=== PATIENT | male | born 1960 | race Caucasian/White ===

== ENCOUNTER 2023-06-25 14:29 | Emergency (ER) | payer SELFPAY ==
[2023-06-25 14:30] VITALS: BP 110/92; PULSE 76; RESP 18; TEMP 35.9; O2SAT 99
--- NOTE | 2023-06-25 14:49 | ED.VIS.CHEST ---
HPI History of Present Illness Chief Complaint: Chest Pain PFSH PFS Medical History no medical history Allergy/AdvReac Type Severity Reaction Status Date / Time No Known Allergies Allergy Verified 06/25/23 14:33 Family History no significant family his Surgical History no surgical history Social History Smoking Status: Current every day smoker tobacco type: cigarettes EXAM Physical Exam Const Vital Signs: 06/25/23 14:30 06/25/23 15:13 06/25/23 16:46 Temperature 96.6 F L Temperature Source Temporal Pulse Rate 76 Respiratory Rate 18 Respiratory Effort Blood Pressure 110/92 H 108/83 H Blood Pressure Mean 98 91 Pulse Ox 99 Oxygen Delivery Method Room Air Room Air 06/25/23 15:30 Temperature Temperature Source Pulse Rate Respiratory Rate Respiratory Effort Normal Non-Labored Blood Pressure Blood Pressure Mean Pulse Ox Oxygen Delivery Method Heart Score History: Slightly/Non-Suspicious ECG: Normal Age: </= 45 years Risk Factors: No Risk Factors Troponin: </= Normal Limit Score: 0 MDM MDM MDM Narrative Medical decision making narrative: HISTORY OF PRESENT ILLNESS: 63-year-old male presents with chest pain. He notes intermittent chest pain and dizziness for the last couple of days. He further states pain is in the left side of his chest sometimes it is worse on the right side. It is worse with moving his upper extremities and torso. It is not exertional and is not pressure-like. Denies any cough, fever or chills. Denies any bleeding diathesis. Denies any volume loss such as vomiting or diarrhea. Patient denies sudden onset of pain, no tearing sensation, no migratory symptoms, no new numbness, weakness or loss of sensation. Patient denies family history or personal history of Marfan syndrome or Lex-Danlos. The patient denies recent surgery in the last 4 weeks or immobilization in the last 3 days, denies previous diagnosis of DVT or PE, hemoptysis, unilateral leg swelling or malignancy with treatment the last 6 months. No estrogen use noted. REVIEW OF SYSTEMS: All other systems reviewed and are negative except as noted in the history of present illness. At least 10 review of systems reviewed and are negative except as noted in history of present illness. PHYSICAL EXAM: Nursing triage notes reviewed, Vital signs reviewed Constitutional: please see mdm HENT: MMM Eyes: Pupils equal round and reactive to light, Extraocular muscles intact Neck: No stridor, no JVD, full neck ROM Lungs: Clear to auscultation, No wheezing or rales. No increased work of breathing, no conversational dyspnea, no accessory muscle use, no nasal flaring. No respiratory distress noted Heart: Regular rate and rhythm, No murmurs, No rubs and No gallops, 2+ distal pulses (radial, femoral, posterior tibial) in all extremities Abdomen: Soft, there is no tenderness, rigidity, rebound or guarding, no obvious peritoneal signs, no palpable pulsatile abdominal masses, no auscultated abdominal bruit : No CVAT Extremities: No edema Neuro: Alert and oriented x3, neuro exam at baseline, cranial nerves II through XII are intact. No pain with extraocular muscle movement. There is negative test of skew. 5 of 5 strength in upper and lower extremities in flexion extension. Intact sensation to light touch in upper and lower extremity dermatomes. No truncal or extremity ataxia. No dysdiadochokinesia. Normal gait. 2+ reflexes in upper and lower extremities. No meningeal signs. Negative Babinski. NIH of 0. Skin: No rash or lesions noted MEDICAL DECISION MAKING: Chief Complaint: Chest pain External records reviewed: No recent cardiac catheterizations, stress test or echocardiograms noted in our electronic medical record Factors affecting care: None documented Social determinants of health: None documented History obtained from others: the patient's Consults: none [facility] Narrative: Patient was initially hemodynamically stable, afebrile, cardiopulmonary exam I considered the following differential diagnosis: ACS, arrhythmia, anemia, electrolyte abnormality, pneumonia, pneumothorax, GI etiology, PE EKG with normal sinus rhythm, normal axis, normal intervals, occasional PVCs, no ischemic changes, no STEMI, no WW or ARVD CBC without leukocytosis, severe anemia, no thrombocytopenia. BMP without evidence of significant electrolyte abnormalities, no anion gap, no acute kidney injury. High-sensitivity troponin is negative, no evidence of myocardial ischemia x 2 I have personally reviewed the patient's chest x-ray. Chest x-ray is unremarkable for pulmonary edema, pneumothorax, pneumonia or focal cardiopulmonary abnormality. The synthesis of the patient's history, physical exam, labs, images suggest no acute life-limiting abnormality. Suspect musculoskeletal etiology given exacerbation with torso and upper extremity movement. His heart score is low risk. PE less likely given low risk Wells score. Aortic dissection is thought to be less likely given no sudden ripping or tearing pain, migratory pain, palpable pulse inequalities, no focal neurologic deficits concurrent with chest pain. Chance of dissection less than 07/1999. Pericarditis less likely given no pathognomonic EKG changes (no diffuse ST elevations, AL depressions). GI etiology (i.e. Boerhaave syndrome) less likely given no chest or neck crepitus, no vomiting or forced retching. I completed a HEART Score to screen for Major Adverse Cardiac Event (MACE) in this patient. The evidence indicates that the patient is very low risk for MACE and this is consistent with my clinical intuition. The risk of further workup or hospitalization for MACE is likely higher than the risk of the patient having a MACE. It is, therefore, in the patient?s best interest not to do additional emergent testing or to be hospitalized for MACE at this time. Shared Decision-Making No hospitalization indicated I have discussed with the patient my clinical impression and the result of the HEART Score to screen for MACE, as well as the risks of further testing and hospitalization. The HEART Score shows that the risk for MACE is less than 1%. Although the risk of MACE has not been completely eliminated, the risks of further testing or hospitalization for MACE likely exceed any potential benefit, and the patient agrees with not pursuing further emergent evaluation or hospitalization for MACE at this time. The patient and/or family, caregivers express understanding. The patient and/or family, caregivers agrees with the plan. Total critical care time today provided was at least 0 minutes. This excludes separately billable procedures. Critical care time (if documented) is secondary to the patient having high probability of clinically significant/life threatening deterioration in the patient's condition which required my urgent intervention. ImPression: 1. Chest pain Disposition: Discharge home Eyad Avendano, Lab Data Labs: Laboratory Results - last 24 hr 06/25/23 06/25/23 15:05 17:36 WBC 7.3 RBC 5.69 Hgb 16.6 H Hct 50.2 MCV 88.2 MCH 29.2 MCHC 33.1 RDW Std Deviation 46.2 H RDW Coeff of Harvey 14.3 Plt Count 260 MPV 10.9 Immature Gran % (Auto) 0.300 Neut % (Auto) 61.9 Lymph % (Auto) 28.6 [place] % (Auto) 7.4 Eos % (Auto) 1.1 Baso % (Auto) 0.7 Absolute Neuts (auto) 4.5 Absolute Lymphs (auto) 2.08 Nucleated RBC % 0 Sodium 138 Potassium 3.8 Chloride 107 Carbon Dioxide 29.0 Anion Gap 2 L BUN 21 H Creatinine 0.91 Estim Creat Clear Calc 87.34 Est GFR (MDRD) Af Amer 107 Est GFR (MDRD) Non-Af 89 BUN/Creatinine Ratio 23.0 H Glucose 115 H Calcium 9.2 Troponin I High Sens 8 10 Radiography Diagnostic Testing: Clinical Impression(s) from Imaging Studies Chest X-Ray 06/25/23 15:25 IMPRESSION: Borderline cardiomegaly. No active or acute cardiopulmonary disease. Electronically Signed: Waqas Núñez MD at 15:36 EST , Discharge Plan Triage Chief Complaint: Chest Pain ED Provider: Eyad Avendano Dx/Rx/DC Orders Primary Care Provider: Care Physician,No Primary Referrals: NOT,DEFINED [Non-Staff] -
--- NOTE | 2023-06-25 15:08 | EKG12_ITS ---
Test Reason : CP Blood Pressure : / mmHG Vent. Rate : 081 BPM Atrial Rate : 081 BPM P-R Int : 156 ms QRS Dur : 096 ms QT Int : 382 ms P-R-T Axes : 067 029 024 degrees QTc Int : 443 ms Sinus rhythm with occasional Premature ventricular complexes Biatrial enlargement Abnormal ECG Confirmed by AMY ARANA, WALLY ([id number]), food expeditor ANGEL CALERO ([id number]) on 06/27/2023 9:21:12 AM Referred By: Confirmed By:WALLY REYES MD
--- NOTE | 2023-06-25 15:11 | ED.RN ---
NO OLD EKG
[2023-06-25 15:19] LABS: Absolute Lymphocyte Count 2.08 X10^3/uL (0.83-4.51); Absolute Neutrophil Count 4.5 X10^3/uL (2.0-7.7); Basophil# 0.05 X10^3/uL; Basophil% 0.7 % (0-1); Eosinophil# 0.08 X10^3/uL; Eosinophils% 1.1 % (0-5); Hematocrit 50.2 % (40-54); Hemoglobin 16.6 g/dL (13.0-16.5); Lymphocyte # 2.08 X10^3/ul (0.83-4.51); Lymphocyte % 28.6 % (19-41); Mean Corp Hgb Conc 33.1 g/dL (32-36); Mean Corpuscular Hgb 29.2 pg (27.0-32.0); Mean Corpuscular Volume 88.2 fL (80-94); Mean Platelet Vol. 10.9 fl (6.2-12.0); Monocyte# 0.54 X10^3/uL; Monocyte% 7.4 % (0-10); NRBC Flagged by Analyzer 0 % (0-5); Neutrophil % 61.9 % (47-70); Platelet Count 260 K/mm3 (150-450); RBC Distribution Width CV 14.3 % (11.6-14.6); RBC Distribution Width SD 46.2 fl (35.1-43.9); Red Blood Count 5.69 M/mm3 (4.6-6.2); White Blood Count 7.3 K/mm3 (4.4-11.0)
[2023-06-25] MEDS: Aspirin 81 MG TAB.CHEW 324 MG PO (15:21)
[2023-06-25] MEDS: 0.9% Normal Saline (1000mL) 1,000 ML 1000 ML IV (15:22)
[2023-06-25 15:24] VITALS: BMI 30.8
--- NOTE | 2023-06-25 15:25 | RAD_ITS ---
STUDY: X-RAY CHEST REASON FOR EXAM: Male, 63 years old. Chest pain. TECHNIQUE: Single frontal view of the chest on 2 images. COMPARISON: None. FINDINGS: The lungs are clear and expanded. There is no demonstrated pleural abnormality. Borderline cardiomegaly. Normal mediastinum and cyrus. Normal visualized pulmonary arteries. Normal visualized aortic arch and descending thoracic aorta. Normal visualized thoracic spine. Normal visualized ribs, clavicles, and shoulders. No abnormality of the visualized soft tissue structures of the upper abdomen. RAD/Chest 1 View (Portable) IMPRESSION: Borderline cardiomegaly. No active or acute cardiopulmonary disease. Electronically Signed: Waqas Núñez MD at 15:36 EST ,
[2023-06-25 15:40] LABS: Anion Gap 2 (5-15); BUN 21 mg/dL (7-18); Calcium,Total 9.2 mg/dL (8.5-10.1); Chloride 107 mmol/L (98-107); Creatinine, Serum 0.91 mg/dL (0.70-1.30); EST Glomerular Filtration Rate 89 mL/min (>60); Est Glom Filt Rate - Afr Amer 107 mL/min (>60); Estimated Creatinine Clearance 87.34 ml/min; Glucose 115 mg/dL (74-106); Potassium 3.8 mmol/L (3.5-5.1); Sodium Level 138 mmol/L (136-145); Troponin-I HS (w/2H Reflex) 8 pg/mL (3.0-78.0)
[2023-06-25 16:46] VITALS: BP 108/83
[2023-06-25 17:17] LABS: Reflex Troponin-HS? (from REC) Y
[2023-06-25 18:11] LABS: Troponin-I HS 10 pg/mL (3.0-78.0)
== END 2023-06-25 18:57 | disposition home or self-care (01) ==
PROVIDERS: Emergency Provider Emergency Medicine; Visit Provider Emergency Medicine
DX: R07.9 Chest pain, unspecified (principal); F17.210 Nicotine dependence, cigarettes, uncomplicated
CPT/HCPCS: 71045; 80048; 84484; 85025; 93005; 96360; 96361; 99284; A4216

== ENCOUNTER 2023-07-20 18:30 | Emergency (ER) | payer OTHER, SELFPAY ==
[2023-07-20 18:31] VITALS: BP 109/88; PULSE 79; RESP 16; TEMP 36.4; O2SAT 100; BMI 32.3
--- NOTE | 2023-07-20 18:43 | EKG12_ITS ---
Test Reason : CP Blood Pressure : / mmHG Vent. Rate : 079 BPM Atrial Rate : 079 BPM P-R Int : 160 ms QRS Dur : 092 ms QT Int : 386 ms P-R-T Axes : 061 032 022 degrees QTc Int : 442 ms Sinus rhythm with frequent Premature ventricular complexes Possible Left atrial enlargement Borderline ECG Confirmed by AMY ARANA, WALLY ([id number]), society editor ANGEL CALERO ([id number]) on 07/30/2023 8:51:47 AM Referred By: KAREN Confirmed By:WALLY REYES MD
--- NOTE | 2023-07-20 18:52 | ED.VIS.CHEST ---
HPI History of Present Illness Chief Complaint: Chest Pain Detail of Chief Complaint: Right sided chest discomfort with burning. Burping with an acid taste. Informant: patient and spouse/S.O. Onset/Context/Timing Onset: Days Activity at onset: gradual Timing: Intermittent Quality: Positive for Burning Location: Right Parasternal Current Severity: Gone Maximum Severity: Mild Worsened By: Nothing; Not Worsened By Exertion, Movement of Arm, Movement of Torso, Eating, Palpation, Breathing or Coughing Relieved By: Nothing Associated Symptoms: Positive for Acid Reflux; Negative for Nausea, Vomiting, Diaphoresis, Dyspnea, Cough, Fever, Lightheadedness or Palpitations Narrative Narrative: 63-year-old male no seen past medical history. Patient is a smoker. He was seen a month ago for atypical chest pain and negative workup. Discharged home. Said last several days he has had burping with an acid taste. And right parasternal burning. He denies any exertional chest pain. No exertional shortness of breath. No nausea or diaphoresis. Says he walks steps at his house all the time without any difficulty. He is currently retired and is not really exertional. He has never had any cardiac disease. He does still smoke which I warned him against that. Prior Similar Symptoms: No Recent Illness/Hospitalization: No CVD Risk Factors: Positive for Smoking; Negative for Hypertension, Diabetes or Hypercholesterolemia PE Risk Factors: Negative for Recent Travel/Surgery, Recent Immobilization, Prior DVT or PE, Cancer or OCP + Smoking + >/=35 TAD Risk Factors: Negative for Marfan's Syndrome PFSH PFSH Medical History no medical history no medical history Home Medications pantoprazole 40 mg tablet,delayed release (Protonix) 40 mg PO DAILY 30 days #30 tabs 07/20/23 [Rx Last Taken Unknown] Allergy/AdvReac Type Severity Reaction Status Date / Time No Known Allergies Allergy Verified 06/25/23 14:33 Social History Smoking Status: Current every day smoker tobacco type: cigarettes ROS ROS ED ROS Narrative Right-sided chest burning. Resolved. No exertional chest pain. No dyspnea. No nausea or diaphoresis. Review of Systems ROS Unobtainable: Denies due to encephalopathy Constitutional Constitutional ED: Denies chills or fever(s) Eyes Eyes: Reports none ENT ENT ED: Denies ear pain Cardiovascular Cardiovascular: Reports chest pain; Denies orthopnea, palpitations or racing heartbeat Respiratory/Chest Respiratory/Chest: Denies cough, dyspnea, dyspnea on exertion or orthopnea Gastrointestinal Gastrointestinal: Denies abdominal pain, constipation, diarrhea, melena, nausea or vomiting Genitourinary Genitourinary ED: Denies dysuria or hematuria Musculoskeletal Musculoskeletal: Denies arthralgias, back pain, myalgias or neck pain Integumentary Denies abscess, Abrasions or rash Neurologic Neurologic: Denies headache(s) Psychiatric Psychiatric: Denies anxiety or depression Endocrine Endocrinology: Denies cold intolerance, heat intolerance, polydipsia, polyphagia or polyuria Hematologic/Lymphatic Hematologic/Lymphatic: Denies easy bleeding, easy bruising or lymphadenopathy Allergic/Immunologic Allergic/Immunologic ED: Denies mouth swelling, tongue swelling or urticaria EXAM Physical Exam Narrative Exam Narrative: Well-appearing 63-year-old male. Vital signs are stable afebrile. H EENT exam unremarkable. Neck nontender no JVD. Lungs clear to auscultation bilaterally. Heart regular rhythm rate about 80 no murmur. Occasional PVC on monitor. Chest wall nontender. Abdomen soft nontender normal bowel sounds no peritoneal signs. No right upper quadrant tenderness. Moving all 4 extremities. Calves nontender no edema or cords. Neurologically is awake alert with no focal motor deficits. Benign exam. Const Vital Signs: 07/20/23 18:31 07/20/23 19:03 07/20/23 19:31 Temperature 97.5 F L Temperature Source Temporal Pulse Rate 79 59 L Respiratory Rate 16 23 H Blood Pressure 109/88 H 100/81 H Blood Pressure Mean 95 87 Pulse Ox 100 97 Oxygen Delivery Method Room Air Room Air Room Air Positive well nourished and well developed; Negative for obese, cachectic, contractures or unkempt General Appearance ED: well developed and NAD; Negative for unkempt, cachectic, contractures or pallor Nutritional Appearance: Negative for cachectic or obese HEENT Reports moist mucous membranes; Denies dry mucous membranes normocephalic and atraumatic; Negative for trauma or tenderness Mouth ED: No dry mucous membranes Mouth: No dry mucous membranes Eyes PERRL and EOMs intact bilaterally General Eye ED: Negative for pale conjunctiva or scleral icterus Neck no lymphadenopathy, supple and no JVD General: Negative for tenderness Chest Wall inspection of chest normal and palpation of chest normal Chest: Negative for tenderness Resp normal respiratory effort and clear to auscultation bilaterally Effort and Inspection: Negative for respiratory distress Auscultation: Negative for rales, rhonchi or wheezes Cardio regular rate, regular rhythm, S1 normal heart sound, S2 normal heart sound and no murmurs Rate: Negative for bradycardia or tachycardic Rhythm: Negative for abnormal rhythm Peripheral Pulses: pulses 2+ throughout GI normal to inspection, nondistended, normoactive bowel sounds, soft to palpation, non-tender, non-distended and no masses Auscultation: Negative for hyperactive bowel sounds Back/Spine no CVA tenderness and no thoracic nor lumbar tenderness General Back: Negative for CVA tenderness Cervical Spine: Negative for cervical spine tenderness Extremity normal to inspection General Extremety ED: Negative for edema or pulses abnormal General Extremity: Negative for edema or pulses abnormal Neuro oriented x3, CN's II-XII intact bilaterally and no sensory deficits noted Sensorium / Orientation: awake, alert, oriented to person, oriented to place and oriented to time; Negative for confused, lethargic or stuporous Motor Exam: strength 5/5 throughout Psych mental status grossly normal Appearance: Negative for unkempt Attitude: No agitated Mood & Affect: Negative for depressed, anxious or tearful Skin no rashes or lesions noted and no wounds General Skin Exam: Negative for jaundice or pallor Rashes: No rashes noted Trauma: Negative for abrasion, laceration or puncture MDM MDM MDM Narrative Medical decision making narrative: 63-year-old male a month ago had a cardiac workup that was negative to the emergency department. This is nonexertional chest pain. Sounds like reflux with indigestion and burping with an acid taste. He will undergo cardiac workup. I will hold aspirin. Will be given Protonix p.o. His cardiac workup is negative comfortably being discharged home with a PPI. Repeat exam at 8 PM patient doing well. Pain-free. We went over his test results. Doing well. We discussed a 2-hour troponin he had 1 done a month ago was negative he is comfortable being discharged home. History & Record Review Discussion w/independent historian: Patient Additional record(s) reviewed:: Prior inpatient record, Prior outpatient record, Prior ED visit and Prior labs Lab Data Attestation: I reviewed the patient's lab results. Lab results narrative: BC normal. White count 8. H&H 16 and 49. Platelets 249. Chemistries show a gap of 4 normal BUN of 17 creatinine 0.7. Glucose 95. Initial troponin 10. Chest x-ray no acute abnormality. Labs: Laboratory Results - last 24 hr 07/20/23 19:02 WBC 8.3 RBC 5.69 Hgb 16.3 Hct 49.4 MCV 86.8 MCH 28.6 MCHC 33.0 RDW Std Deviation 45.8 H RDW Coeff of Harvey 14.5 Plt Count 249 MPV 11.3 Immature Gran % (Auto) 0.400 Neut % (Auto) 55.7 Lymph % (Auto) 30.5 [place] % (Auto) 9.5 Eos % (Auto) 2.9 Baso % (Auto) 1.0 Absolute Neuts (auto) 4.7 Absolute Lymphs (auto) 2.54 Nucleated RBC % 0 Sodium 141 Potassium 3.8 Chloride 109 H Carbon Dioxide 28.0 Anion Gap 4 L BUN 17 Creatinine 0.77 Estim Creat Clear Calc 100.07 Est GFR (MDRD) Af Amer 131 Est GFR (MDRD) Non-Af 108 BUN/Creatinine Ratio 22.1 H Glucose 95 Calcium 9.1 Troponin I High Sens 10 Radiography Chest X-Ray - ED: 1 View, Read by ED Physician, Heart, Lungs, Mediastinum, Bony Structures, No Acute Disease and Chronic Changes Diagnostic Testing: Clinical Impression(s) from Imaging Studies Chest X-Ray 07/20/23 19:14 IMPRESSION: No acute cardiopulmonary disease. Electronically Signed: Lachelle Wu MD at 19:36 EST , Chest x-ray, portable, single view shows no acute abnormality. Verbally by myself. Normal cardiac silhouette. Normal mediastinum. Normal lung chacon. No pneumothorax. Rhythm Strip Rhythm Strip: Sinus Rhythm Rate: 79 Ectopy: PVC(s) EKG Initial EKG: Attestation: I personally reviewed and interpreted this EKG as follows: Interpretation: Sinus Rhythm and No Acute Injury Pattern Comments: Normal sinus rhythm rate of 79. Frequent PVCs. No acute signs of KS or ischemia. Compared to her prior EKG from May 1 month ago unchanged. Prior EKG tracings: available for review Prior: Unchanged Discharge Plan Triage Chief Complaint: Chest Pain ED Provider: Zachery Contreras Dx/Rx/DC Orders Clinical Impression: Atypical chest pain, Gastroesophageal reflux Instructions: ED GERD (Adult) Prescriptions: New pantoprazole [Protonix] 40 mg tablet,delayed release (DR/EC) 40 mg PO DAILY 30 Days Qty: 30 0RF Primary Care Provider: Care Physician,No Primary Referrals: Macrellus Dominguez MD [Med Staff - [facility]] - As Needed Care Physician,No Primary [Primary Care Provider] - Activity Restrictions/Additional Instructions: Tums and/or Protonix for reflux. Avoid spicy foods. Try not to eat late at night. May try to elevate the head of your bed to see if it helps. Long-term stop smoking. Follow-up with a primary care provider. Disposition Disposition: Home, Self Care
--- NOTE | 2023-07-20 19:14 | RAD_ITS ---
STUDY: X-RAY CHEST REASON FOR EXAM: Male, 63 years old. chest pain TECHNIQUE: Single AP portable view of the chest. COMPARISON: 06/17/2023. FINDINGS: The lungs are clear and expanded. There is no demonstrated pleural abnormality. Normal size heart. Normal mediastinum and cyrus. Normal visualized pulmonary arteries. There is mild atherosclerotic calcification of the aortic arch with tortuosity. There are diffuse degenerative changes of the visualized thoracic spine. Normal visualized ribs, clavicles, and shoulders. There is no demonstrated abnormality of the visualized soft tissue structures of the upper abdomen. RAD/Chest 1 View (Portable) IMPRESSION: No acute cardiopulmonary disease. Electronically Signed: Lachelle Wu MD at 19:36 EST ,
[2023-07-20 19:17] LABS: Absolute Lymphocyte Count 2.54 X10^3/uL (0.83-4.51); Absolute Neutrophil Count 4.7 X10^3/uL (2.0-7.7); Basophil# 0.08 X10^3/uL; Eosinophil# 0.24 X10^3/uL; Eosinophils% 2.9 % (0-5); Hematocrit 49.4 % (40-54); Hemoglobin 16.3 g/dL (13.0-16.5); Lymphocyte # 2.54 X10^3/ul (0.83-4.51); Lymphocyte % 30.5 % (19-41); Mean Corpuscular Hgb 28.6 pg (27.0-32.0); Mean Corpuscular Volume 86.8 fL (80-94); Mean Platelet Vol. 11.3 fl (6.2-12.0); Monocyte# 0.79 X10^3/uL; Monocyte% 9.5 % (0-10); NRBC Flagged by Analyzer 0 % (0-5); Neutrophil # 4.66 X10^3/uL (2.7-7.7); Neutrophil % 55.7 % (47-70); Platelet Count 249 K/mm3 (150-450); RBC Distribution Width CV 14.5 % (11.6-14.6); RBC Distribution Width SD 45.8 fl (35.1-43.9); Red Blood Count 5.69 M/mm3 (4.6-6.2); White Blood Count 8.3 K/mm3 (4.4-11.0)
[2023-07-20] MEDS: Pantoprazole Sodium 40 MG Tablet PO (19:24)
[2023-07-20 19:31] VITALS: BP 100/81; PULSE 59; RESP 23; O2SAT 97
[2023-07-20 19:33] LABS: Anion Gap 4 (5-15); BUN 17 mg/dL (7-18); BUN/Creat Ratio 22.1 RATIO (10-20); Calcium,Total 9.1 mg/dL (8.5-10.1); Chloride 109 mmol/L (98-107); Creatinine, Serum 0.77 mg/dL (0.70-1.30); EST Glomerular Filtration Rate 108 mL/min (>60); Est Glom Filt Rate - Afr Amer 131 mL/min (>60); Estimated Creatinine Clearance 100.07 ml/min; Glucose 95 mg/dL (74-106); Potassium 3.8 mmol/L (3.5-5.1); Sodium Level 141 mmol/L (136-145); Troponin-I HS (w/2H Reflex) 10 pg/mL (3.0-78.0)
[2023-07-20 19:50] VITALS: PULSE 58; RESP 12; O2SAT 98
[2023-07-20 20:00] VITALS: BP 100/78
[2023-07-20 20:10] VITALS: PULSE 61; RESP 13; O2SAT 97
[2023-07-20 20:15] VITALS: BP 101/85; PULSE 59; RESP 18; O2SAT 98
[2023-07-20 21:11] LABS: Reflex Troponin-HS? (from REC) Y
== END 2023-07-20 20:20 | disposition home or self-care (01) ==
PROVIDERS: Emergency Provider Emergency Medicine; Visit Provider Emergency Medicine
DX: R07.89 Other chest pain (principal); K21.9 Gastro-esophageal reflux disease without esophagitis; F17.210 Nicotine dependence, cigarettes, uncomplicated
CPT/HCPCS: 71045; 80048; 84484; 85025; 93005; 99283; A4216

== ENCOUNTER 2024-08-26 14:37 | Emergency (ER) | payer MEDICARE, SELFPAY ==
[2024-08-26 14:37] VITALS: BP 101/82; PULSE 92; RESP 18; TEMP 36.4; O2SAT 100; BMI 34.9
[2024-08-26 16:15] LABS: Absolute Lymphocyte Count 1.29 X10^3/uL (0.83-4.51); Absolute Neutrophil Count 9.6 X10^3/uL (2.0-7.7); Basophil# 0.03 X10^3/uL; Basophil% 0.3 % (0-1); Eosinophil# 0.01 X10^3/uL; Eosinophils% 0.1 % (0-5); Hematocrit 48.9 % (40-54); Lymphocyte # 1.29 X10^3/ul (0.83-4.51); Lymphocyte % 10.9 % (19-41); Mean Corp Hgb Conc 32.7 g/dL (32-36); Mean Corpuscular Hgb 28.2 pg (27.0-32.0); Mean Corpuscular Volume 86.1 fL (80-94); Mean Platelet Vol. 11.7 fl (6.2-12.0); Monocyte# 0.81 X10^3/uL; Monocyte% 6.9 % (0-10); NRBC Flagged by Analyzer 0 % (0-5); Neutrophil # 9.64 X10^3/uL (2.7-7.7); Neutrophil % 81.5 % (47-70); Platelet Count 296 K/mm3 (150-450); RBC Distribution Width CV 13.8 % (11.6-14.6); RBC Distribution Width SD 43.9 fl (35.1-43.9); Red Blood Count 5.68 M/mm3 (4.6-6.2); White Blood Count 11.8 K/mm3 (4.4-11.0)
[2024-08-26 16:26] LABS: ALB/GLOB Ratio 0.8 RATIO (0.9-2.4); AST(SGOT) 20 U/L (15-37); Alanine Aminotransfer ALT/SGPT 33 U/L (16-61); Alkaline Phosphatase 103 U/L (45-117); Anion Gap 7 (5-15); BUN 11 mg/dL (7-18); BUN/Creat Ratio 14.7 RATIO (10-20); Calcium,Total 9.8 mg/dL (8.5-10.1); Chloride 103 mmol/L (98-107); Creatinine, Serum 0.75 mg/dL (0.70-1.30); EST Glomerular Filtration Rate 111 mL/min (>60); Est Glom Filt Rate - Afr Amer 134 mL/min (>60); Estimated Creatinine Clearance 114.68 ml/min; Glucose 132 mg/dL (74-106); Potassium 3.7 mmol/L (3.5-5.1); Sodium Level 137 mmol/L (136-145)
[2024-08-26 16:37] VITALS: BP 165/87; PULSE 103; RESP 25; O2SAT 100
--- NOTE | 2024-08-26 16:53 | EDS_ITS ---
HPI HPI - GI History of Present Illness Chief Complaint: Abd Pain Informant: patient Abdominal Pain/Flank Pain Onset: Yesterday Context: Sudden Onset Timing: Continuous Quality: Sharp Location: Diffuse Worsened by: Nothing Relieved by: - (Standing) Nausea/Vomiting/Emesis GI Symptom: Negative for Nausea or Vomiting Diarrhea/Melena/Hematochezia GI Symptom: Negative for Diarrhea, Melena or Hematochezia Associated Symptoms Associated Symptoms: Positive for Frequency; Negative for Dysuria or Hematuria Narrative Narrative: Patient presents with abdominal pain that began yesterday. Patient states it began rather suddenly. Patient states it is constant. Patient states that it goes all the way across his mid abdomen. Patient describes the pain as sharp. Patient states the pain is better with standing. Patient states nothing makes it worse. Patient denies any nausea or vomiting. Patient denies any diarrhea, melena, or hematochezia. Patient denies any dysuria or hematuria. Patient does admit to some urinary frequency. PFSH PFSH Medical History no medical history no medical history Home Medications ?Medication ?Instructions ?Recorded ?Last Taken ?Type pantoprazole 40 mg tablet,delayed 40 mg PO DAILY 30 days #30 tabs 07/20/23 Unknown Rx release (Protonix) Allergy/AdvReac Type Severity Reaction Status Date / Time No Known Allergies Allergy Verified 08/26/24 14:40 Surgical History no surgical history no surgical history Social History Smoking Status: Current every day smoker tobacco type: cigarettes ROS ROS ED Constitutional Constitutional ED: Denies chills or fever(s) Eyes Eyes: Denies blurry vision or change in vision ENT ENT ED: Denies rhinorrhea or sore throat Cardiovascular Cardiovascular: Denies chest pain or palpitations Respiratory/Chest Respiratory/Chest: Denies cough or dyspnea Gastrointestinal Gastrointestinal: Reports abdominal pain; Denies nausea or vomiting Genitourinary Genitourinary ED: Reports urinary frequency; Denies dysuria or hematuria Musculoskeletal Musculoskeletal: Denies back pain or neck pain Integumentary Denies abscess or rash Neurologic Neurologic: Denies headache(s) or weakness Allergic/Immunologic Allergic/Immunologic ED: Denies mouth swelling or urticaria EXAM Physical Exam Const Vital Signs: 08/26/24 14:37 08/26/24 16:37 08/26/24 18:00 Temperature 97.6 F L Temperature Source Oral Pulse Rate 92 103 H 78 Respiratory Rate 18 25 H 22 H Blood Pressure 101/82 H 165/87 H 119/83 H Blood Pressure Mean 88 113 95 Pulse Ox 100 100 99 Oxygen Delivery Method Room Air Room Air Room Air Positive well nourished and well developed General Appearance ED: well developed and NAD HEENT Reports moist mucous membranes Neck supple and no JVD Resp normal respiratory effort and clear to auscultation bilaterally Cardio regular rate and regular rhythm GI non-distended Palpation: soft and tender epigastric, LLQ, RLQ, LUQ, RUQ, periumbilical and suprapubic; Negative for guarding or rebound tenderness present Neuro CN's II-XII intact bilaterally, moves all extremities and no sensory deficits noted Sensorium / Orientation: alert Motor Exam: strength 5/5 throughout Psych mental status grossly normal and thought process normal MDM MDM MDM Narrative Medical decision making narrative: Differential diagnosis includes gastroenteritis, pancreatitis, peptic ulcer disease, duodenal ulcer, colitis, diverticulitis, appendicitis, cholecystitis, cholelithiasis, bowel obstruction, and perforation. CBC will be obtained to assess for leukocytosis and anemia. Comprehensive metabolic profile will be obtained to assess for hepatic function, renal function, and electrolyte abnormality. Lipase will be obtained to assess for pancreatitis. Urinalysis will be obtained to assess for urinary tract infection and hematuria. CT scan of the abdomen and pelvis will be obtained to assess for diverticulitis, cholecystitis, bowel obstruction, perforation, and appendicitis. Lab Data Attestation: I reviewed the patient's lab results. Lab results narrative: CBC was reviewed. There is a slight leukocytosis of 11.8. The remainder is within normal limits. Comprehensive metabolic profile was reviewed. Glucose was slightly elevated at 132. The remainder was within normal limits. Lipase was reviewed and was normal at 16. Urinalysis was reviewed. There is no evidence of urinary tract infection or hematuria. Labs: Laboratory Results - last 24 hr 08/26/24 08/26/24 15:30 17:59 WBC 11.8 H RBC 5.68 Hgb 16.0 Hct 48.9 MCV 86.1 MCH 28.2 MCHC 32.7 RDW Std Deviation 43.9 RDW Coeff of Harvey 13.8 Plt Count 296 MPV 11.7 Immature Gran % (Auto) 0.300 Neut % (Auto) 81.5 H Lymph % (Auto) 10.9 L Crane % (Auto) 6.9 Eos % (Auto) 0.1 Baso % (Auto) 0.3 Absolute Neuts (auto) 9.6 H Absolute Lymphs (auto) 1.29 Nucleated RBC % 0 Sodium 137 Potassium 3.7 Chloride 103 Carbon Dioxide 27.0 Anion Gap 7 BUN 11 Creatinine 0.75 Estim Creat Clear Calc 114.68 Est GFR (MDRD) Af Amer 134 Est GFR (MDRD) Non-Af 111 BUN/Creatinine Ratio 14.7 Glucose 132 H Calcium 9.8 Total Bilirubin 0.60 AST 20 ALT 33 Alkaline Phosphatase 103 Total Protein 9.0 H Albumin 4.0 Globulin 5.0 H Albumin/Globulin Ratio 0.8 L Lipase 16 Urine Color Yellow Urine Clarity Clear Urine pH 5.0 Ur Specific [place] 1.015 Urine Protein 30 H Urine Glucose (UA) Normal Urine Ketones 5 H Urine Occult Blood 50 H Urine Nitrite Negative Urine Bilirubin Negative Urine Urobilinogen Normal Ur Leukocyte Esterase 25 H Urine RBC 0-5 SEEN Urine WBC 0-5 SEEN Ur Squamous Epith Cells 0 SEEN Urine Bacteria 0 SEEN Urine Mucus 1+ Radiography Diagnostic Testing: Clinical Impression(s) from Imaging Studies Abdomen/Pelvis CT 08/26/24 17:00 IMPRESSION: 1. No acute abnormality in the abdomen and pelvis. 2. Hepatic steatosis. 3. Prostatomegaly. 4. Probable hepatic cyst. One or more dose reduction techniques were used (e.g., Automated exposure control, adjustment of the mA and/or kV according to patient size, use of iterative reconstruction technique). Reading Location: [facility] CT scan of the abdomen and pelvis was obtained. There is no acute abnormality noted. There is hepatic steatosis and a probable hepatic cyst. This was interpreted by the radiologist and was also independently reviewed by myself. Treatment and Re-Evaluation :: Smoking cessation was discussed. Patient was given IV fluids, morphine, and Zofran. Patient was advised of his findings. Patient was instructed to start with a liquid diet and advance as tolerated. Patient was instructed to follow- up with his primary care physician in 5 to 7 days. Patient was instructed to return if worse in any way. Patient understood and was agreeable with the plan. All questions were answered. Discharge Plan Triage Chief Complaint: Abd Pain ED Provider: Rebel Hardy Dx/Rx/DC Orders Clinical Impression: Abdominal pain, Tobacco use disorder Instructions: ED Abdominal Pain Unkn Cause Male... Prescriptions: No Action pantoprazole [Protonix] 40 mg tablet,delayed release (DR/EC) 40 mg PO DAILY 30 Days Qty: 30 0RF Primary Care Provider: ALAINA ALMANZA Referrals: ALAINA ALMANZA [Other] - 5-7 Days Print Language: Malaysian Disposition Disposition: Home, Self Care
--- NOTE | 2024-08-26 17:00 | CT_ITS ---
PROCEDURE: ABDOMEN/PELVIS W IV CONT ONLY REASON FOR EXAM: Abdominal pain TECHNIQUE: Abdomen and pelvis CT before and following intravenous contrast. IV CONTRAST: COMPARISON: None. FINDINGS: Lung bases: Clear Liver: Fatty infiltration hypodense lesion in the left hepatic lobe measuring 1.7 cm. Gallbladder: Unremarkable. Spleen: Unremarkable. Pancreas: Fatty replaced.. Adrenals: Unremarkable. Kidneys: Unremarkable. Bladder: Unremarkable. Reproductive Organs: Prostate measures 6.4 cm in transverse dimension. Bowel: Nondilated.. Appendix: Normal. Lymph nodes: No suspicious lymph node enlargement. Vasculature: Atherosclerotic calcification with no evidence of aneurysm. Peritoneum / Retroperitoneum: No ascites. No free air. Bones: Unremarkable. CT/Abdomen/Pelvis W IV Cont ONLY IMPRESSION: 1. No acute abnormality in the abdomen and pelvis. 2. Hepatic steatosis. 3. Prostatomegaly. 4. Probable hepatic cyst. One or more dose reduction techniques were used (e.g., Automated exposure contr ol, adjustment of the mA and/or kV according to patient size, use of iterative reconstruction technique). Reading Location: [facility]
[2024-08-26] MEDS: Ondansetron 4 MG/2 ML Vial IV (17:22)
[2024-08-26] MEDS: Morphine 4 MG/ML Syringe IV ×2 (17:22→18:50)
[2024-08-26 17:43] LABS: Lipase 16 U/L (13-75)
[2024-08-26 18:00] VITALS: BP 119/83; PULSE 78; RESP 22; O2SAT 99
[2024-08-26 18:13] LABS: Bacteria 0 SEEN /hpf (None Seen); Squamous Epithelial Cells - UA 0 SEEN /hpf (0-5)
[2024-08-26 18:17] LABS: Color, Urine Yellow (Yellow); Glucose, Dipstick Normal (Normal); Ketone-Dipstick 5 mg/dl (Negative); Leukocyte Esterase-Dipstick 25 /ul (Negative); Nitrite-Dipstick Negative (Negative); Occult Blood-Urine 50 /ul (Negative); Protein-Dipstick 30 mg/dl (Negative); Specific Gravity, Urine 1.015 (1.002-1.030); Urine Bilirubin Dipstick Negative (Negative); Urine Clarity Clear (Clear); Urine Urobilinogen Normal (Normal)
[2024-08-26 18:51] LABS: Mucous, Urine 1+ /hpf (<or=2+); White Blood Cells 0-5 SEEN /hpf (0-5)
[2024-08-26 18:52] LABS: Red Blood Cells-Urine 0-5 SEEN /hpf (0-5)
[2024-08-26 19:57] VITALS: BP 112/84; PULSE 77; RESP 18; TEMP 36.7; O2SAT 100
== END 2024-08-26 19:58 | disposition home or self-care (01) ==
PROVIDERS: Emergency Provider Emergency Medicine; Visit Provider Emergency Medicine
DX: R10.9 Unspecified abdominal pain (principal); R35.0 Frequency of micturition; F17.210 Nicotine dependence, cigarettes, uncomplicated
CPT/HCPCS: 74177; 80053; 81001; 83690; 85025; 96374; 96375; 96376; 99282; Q9967; A4216; J2405

== ENCOUNTER 2025-06-07 14:47 | Emergency (ER) | payer MEDICARE, SELFPAY ==
[2025-06-07 14:49] VITALS: BP 132/108; PULSE 106; RESP 18; TEMP 36.2; O2SAT 100; BMI 32.8
--- NOTE | 2025-06-07 15:30 | EX.ED.DYSGE1 ---
HPI History of Present Illness Chief Complaint: General Illness Narrative Narrative: Chief complaint and HPI: 65-year-old male with past medical history of GERD presents patient of pruritus. Patient states for the past week he has been having diffuse body itching with intermittent face tightness. He denies any fever, chills, shortness of breath, chest pain abdominal pain, nausea, vomiting, rash. Denies any change in foods, body products, cleaning solutions. in the house is not itching. States he took a little bit of children's Benadryl without improvement. He does not use any kind of body lotion. Review of systems: See HPI Medications: As listed on the chart Allergies: As listed on the chart PFSH: Per chart Vital signs: As listed on the chart. Reviewed. Physical exam: Gen: A&O x3, NAD Head: Normocephalic, atraumatic Eyes: No sclera icterus, conjunctiva clear, PERRL ENT: Moist mucous membranes Neck: Trachea midline CV: RRR, no murmurs Resp: Lungs CTA BL, no w/r/c Musc: Full ROM Skin: Warm, intact, patient has dry skin throughout the body especially on the face and arms. There is no rash. No vesicles, petechiae/purpura, skin sloughing, crepitus. No scabies lesions. No bites appreciated. No weeping or drainage. No jaundice. Neuro: Alert, oriented, grossly intact, sensation intact Psych: Cooperative, appropriate mood and affect [facility] Home Medications ?Medication ?Instructions ?Recorded ?Last Taken ?Type pantoprazole 40 mg tablet,delayed 40 mg PO DAILY 30 days #30 tabs 07/20/23 Unknown Rx release (Protonix) Allergy/AdvReac Type Severity Reaction Status Date / Time No Known Allergies Allergy Verified 06/07/25 14:49 Social History household members: spouse current occupational status: employed Smoking Status: Current every day smoker tobacco type: cigarettes EXAM Physical Exam Const Vital Signs: 06/07/25 14:49 Temperature 97.1 F L Temperature Source Temporal Pulse Rate 106 H Respiratory Rate 18 Blood Pressure 132/108 H Blood Pressure Mean 116 Pulse Ox 100 Oxygen Delivery Method Room Air MDM MDM MDM Narrative Medical decision making narrative: 65-year-old male with past medical history of GERD presents patient of pruritus. Patient states for the past week he has been having diffuse body itching with intermittent face tightness. He denies any fever, chills, shortness of breath, chest pain abdominal pain, nausea, vomiting, rash. Denies any change in foods, body products, cleaning solutions. in the house is not itching. States he took a little bit of children's Benadryl without improvement. He does not use any kind of body lotion. See physical exam findings. Patient skin is warm and intact. He has very dry skin throughout the body especially on the face and the arms which are his biggest complaints. No rash, vesicles, petechiae, purpura, skin sloughing, crepitus, scabies lesions, bites, weeping or drainage, jaundice. Differential diagnosis includes but is not limited to pruritus from dry skin, eczema, contact dermatitis, allergic reaction. Based on physical exam, I suspect this is secondary to dry skin. I recommended [id number] lotion. Regular Benadryl as needed for itching. Recommend following up with primary care physician and dermatology. Return back to ED if symptoms change or worsen. I do not think any laboratory workup is needed at this time. Impression: 1. Pruritus secondary to dry skin Discharge Plan Triage Chief Complaint: General Illness ED Provider: Rony Cox Dx/Rx/DC Orders Prescriptions: No Action pantoprazole [Protonix] 40 mg tablet,delayed release (DR/EC) 40 mg PO DAILY 30 Days Qty: 30 0RF Primary Care Provider: ALAINA ALMANZA Referrals: ALAINA ALMANZA [Other] Print Language: [place] Citizen
[2025-06-07 15:32] VITALS: BP 111/76; PULSE 90; RESP 18; O2SAT 96
[2025-06-07 15:36] VITALS: BP 111/76; PULSE 90; RESP 18; TEMP 36.7; O2SAT 96
== END 2025-06-07 15:54 | disposition home or self-care (01) ==
LOC: ED 15:46
PROVIDERS: Emergency Provider Surgery; Visit Provider Surgery
DX: L29.9 Pruritus, unspecified (principal); F17.210 Nicotine dependence, cigarettes, uncomplicated; K21.9 Gastro-esophageal reflux disease without esophagitis
CPT/HCPCS: 99282